=== PATIENT | male | born 1950 | race Caucasian/White ===

== ENCOUNTER 2018-05-23 18:11 | Inpatient (IN) | payer OTHER ==
[~2018-05-23] VITALS: Ht 177.8 cm; Wt 85.3 kg
[2018-05-23 18:17] VITALS: BP 126/83
[2018-05-23] MEDS ORDERED: FISH OIL 1,001000 M2 PO (18:20)
[2018-05-23] MEDS ORDERED: ASPIR 8181 MG PO (18:20)
[2018-05-23 18:35] LABS: URINE BILIRUBIN NEGATIVE (Negative); URINE BLOOD 1+ (Negative); URINE CLARITY SL CLOUDY; URINE COLOR YELLOW; URINE GLUCOSE-RANDOM NEGATIVE (Negative); URINE KETONES NEGATIVE (Negative); URINE PROTEIN TRACE (Negative); URINE SPECIFIC GRAVITY 1.025 (1.005-1.030); URINE UROBILINOGEN 0.2 E.U./dl (0.2-1.0)
[2018-05-23 18:37] LABS: URINE LEUKOCYTES-REFLEX 3+ (Negative); URINE NITRITE-REFLEX POSITIVE (Negative)
[2018-05-23 18:41] LABS: SQUAMOUS 4-10 Moderate /LPF (0-3); URINE WBC-REFLEX >25 Many /HPF (0-5)
[2018-05-23 18:42] LABS: BACTERIA-REFLEX >30 Many /HPF (None Seen); CASTS None Seen /LPF (None Seen); MUCUS >6 Heavy strn/LPF (None Seen); URINE RBC 3-10 Few /HPF (0-2)
[2018-05-23 18:43] LABS: CRYSTALS None Seen /LPF (None Seen)
[2018-05-23 19:07] LABS: HEMATOCRIT 48.6 % (42.0-52.0); HEMOGLOBIN 16.3 gm/dL (14.0-18.0); MCH 31.5 pg (26.0-34.0); MCHC 33.5 g/dL (28.0-37.0); MCV 94.3 fL (80.0-100.0); MPV 8.4 fl. (7.2-11.1); NUCLEATED RBCS 0 /100WBC; PLATELET COUNT* 258 thou/uL (150-400); RBC 5.16 mil/uL (4.50-6.00); RDW-CV 13.8 % (10.5-14.5); WBC 14.4 thou/uL (4.0-11.0)
[2018-05-23 19:13] LABS: POTASSIUM 4.4 mmol/L (3.5-5.1)
[2018-05-23 19:18] LABS: ALBUMIN 4.1 g/dL (3.4-5.0); TOTAL BILIRUBIN 2.1 mg/dL (<0.1-1.0); TOTAL PROTEIN 8.4 g/dL (6.4-8.2)
[2018-05-23 19:39] LABS: ABSOLUTE LYMPHOCYTES 1.3 thou/uL (0.8-5.3); ABSOLUTE MONOCYTES 0.7 thou/uL (0.0-1.2); ABSOLUTE NEUTROPHILS 12.4 thou/uL (1.6-8.1)
[2018-05-23 19:40] LABS: PLATELET ESTIMATE ADEQUATE
[2018-05-23 22:40] VITALS: BP 132/71
[2018-05-24] VITALS: BP 154/74
[2018-05-24 04:00] VITALS: BP 126/89
[2018-05-24 08:00] VITALS: BP 120/83
[2018-05-24 12:40] VITALS: BP 127/77
--- NOTE | 2018-05-24 13:42 | EKG ---
[place] [address] ELECTROCARDIOGRAM REPORT Name: ALYSHA MELGOZA Room: [address] ADM IN M.R.#: [id number] Admission: 05/23/18 Attend Phys: Alfredo Cuello MD Discharge: Date of : 46 Report #: [id number] THIS REPORT FOR: //name// [facility] ED Test Date: 2018-05-23 Test Time: 18:39:54 Pat Name: ALYSHA MELGOZA Department: Room: 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 : 1950 Requested By: Rekha Hernandez Order Number: [id number] MD: Julio Dior Measurements Intervals [place] Rate: 81 P: [place]: QRS: -72 QRSD: 105 T: 12 QT: 359 QTc: 417 Interpretive Statements Atrial fibrillation Incomplete right bundle branch block Borderline low voltage, extremity leads Abnormal R-wave progression, early transition No previous ECG available for comparison Electronically Signed On 05-24-2018 13:42:34 BRAND DEVELOPMENT MANAGER by Julio Dior [email or web address] <ELECTRONICALLY SIGNED> By: Julio Dior MD, [facility] 05/24/18 1342 1839 38 Julio Dior MD, FACC /EPI
--- NOTE | 2018-05-24 13:43 | EKG ---
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: : 1950 Requested By: Rekha Hernandez Order Number: [id number] MD: Julio Dior Measurements Intervals [place] Rate: 87 P: [place]: QRS: 150 QRSD: 110 T: 28 QT: 362 QTc: 436 Interpretive Statements Atrial fibrillation Low voltage, extremity leads Probable right ventricular hypertrophy No previous ECG available for comparison Electronically Signed On 05-24-2018 13:42:50 DIVING SUPERVISOR by Julio Dior [email or web address] <ELECTRONICALLY SIGNED> By: Julio Dior MD, [facility] 05/24/18 1342 2248 2248 Julio Dior MD, FACC /EPI
[2018-05-25 00:20] VITALS: BP 107/67
[2018-05-25 04:00] VITALS: BP 112/66
[2018-05-25 05:12] LABS: HEMATOCRIT 41.1 % (42.0-52.0); MCH 32.3 pg (26.0-34.0); MCHC 34.3 g/dL (28.0-37.0); MPV 8.8 fl. (7.2-11.1); RBC 4.37 mil/uL (4.50-6.00); WBC 9.9 thou/uL (4.0-11.0)
[2018-05-25 05:13] LABS: ALBUMIN 3.4 g/dL (3.4-5.0); CALCIUM 7.9 mg/dL (8.5-10.1); CREATININE 0.8 mg/dL (0.6-1.3); MAGNESIUM 1.8 mg/dL (1.8-2.4); POTASSIUM 4.1 mmol/L (3.5-5.1); TOTAL BILIRUBIN 2.1 mg/dL (<0.1-1.0); TOTAL PROTEIN 6.5 g/dL (6.4-8.2)
[2018-05-25 05:34] LABS: HEMOGLOBIN 14.1 gm/dL (14.0-18.0)
[2018-05-25 07:50] VITALS: BP 133/76
--- NOTE | 2018-05-25 12:07 | CON ---
[address] [address] CONSULTATION Name: ALYSHA MELGOZA Room: [address] IN .R.#: [id number] Admission: 05/23/18 Attend Phys: Alfredo Cuello MD Discharge: Date of : 46 Report #: [id number] THIS REPORT FOR: //name// CC: FAM physician/PCP Alfredo Cuello DATE OF SERVICE: 05/24/2018 REFERRING PHYSICIAN: Dr. Alfredo Cuello. REASON FOR CONSULTATION: UTI, flank pain and renal masses. HISTORY OF PRESENT ILLNESS: This is a 67-year-old male who denies any prior urologic intervention. He reports that he came to the hospital due to gradually worsening malaise over the past few weeks, accompanied by fairly acute onset of diffuse abdominal pain, nausea and vomiting. He also had some chest pain. He denies dysuria, hematuria or fever. He reports chronic slow stream, hesitancy, intermittency and incomplete emptying. PAST MEDICAL HISTORY: Significant for neck surgery, appendectomy, cholecystectomy. ALLERGIES: No known drug allergies. CURRENT MEDICATIONS: List is reviewed. At home, he takes only pogp-zwl-cwlcxox fish oil and aspirin. SOCIAL HISTORY: He denies tobacco or alcohol use. FAMILY HISTORY: He does not know of any family history of renal problems or prostate disease/prostate cancer. REVIEW OF SYSTEMS: As per the history of present illness. He denies shortness of breath, cough, dizziness or palpitations. Denies any other recent illness. A 10-point review of systems is otherwise negative other than as noted above. PHYSICAL EXAMINATION: VITAL SIGNS: Temperature 36.4, pulse 82, respirations 17, blood pressure 126/89. GENERAL: This is a 67-year-old male in no acute distress. He is awake, alert and oriented x 3. Answers questions appropriately. HEENT: Normocephalic, atraumatic. NECK: Supple. No JVD. Extraocular movements are intact. Oropharynx: Clear. CARDIOVASCULAR: Rhythm is regular. Chest wall is nontender. RESPIRATORY: Effort and excursion are normal. ABDOMEN: Soft, nontender, nondistended. Costovertebral [place] [address] CONSULTATION Name: ALYSHA MELGOZA Room: [address] IN [facility]#: [id number] Admission: 05/23/18 Attend Phys: Alfredo Cuello MD Discharge: Date of : 46 Report #: [id number] nontender. Bladder is nonpalpable. GENITOURINARY: Reveals normal skin of the penis and scrotum. Urethral meatus is orthotopic. There is a Whalen catheter in place with grossly clear urine. Testes are nontender with no palpable masses. Digital rectal exam reveals normal anus and sphincter tone. No rectal masses are palpable. Prostate is moderately enlarged with no fluctuance, tenderness or nodularity. EXTREMITIES: Warm. Moves all extremities well. No peripheral edema. Radial pulses are palpable. LABORATORY DATA: Includes sodium 136, potassium 4.4, chloride 99, CO2 of 29, BUN 15, creatinine 1.0, glucose 132. White count 14.4, hemoglobin 16.3, platelet count 258,000. Urinalysis reveals greater than 25 white cells, 3-10 red cells and greater than 30 bacteria. Blood and urine cultures are pending. He has been started on Rocephin empirically. Contrast CT scan of the abdomen and pelvis reveals bladder wall thickening and a possible small right renal calculus. This also reveals bilateral renal lesions, most of which appear to be cysts. One of these in the left upper pole (approximately 2 cm) has a somewhat complex appearance. Precontrast imaging was not done. Findings were discussed with the patient at length. IMPRESSION: 1. Urinary tract infection. Agree with Rocephin empirically pending culture data. 2. Acute urinary retention versus chronic urinary retention, likely secondary to benign prostatic hypertrophy, possibly affected by urinary tract infection as well. Bladder scan residual was reportedly over 400 mL. Whalen catheter has been placed. I recommend leaving that in place for at least a few days and starting Flomax. Would defer PSA at this point due to the urinary tract infection, urinary retention and instrumentation. 3. Bilateral renal lesions. Recommend precontrast imaging to evaluate further for any significant enhancement. 4. We will follow along. <ELECTRONICALLY SIGNED> By: Olayinka Guo MD 05/25/18 1207 0830 [id number] Guo MD /nt
[2018-05-25 12:35] VITALS: BP 144/72
[2018-05-25 16:32] VITALS: BP 128/69
[2018-05-26] VITALS: BP 139/98
[2018-05-26 04:00] VITALS: BP 139/81
[2018-05-26 06:00] LABS: ABSOLUTE LYMPHOCYTES 1.6 thou/uL (0.8-5.3); ABSOLUTE MONOCYTES 0.9 thou/uL (0.0-1.2); ABSOLUTE NEUTROPHILS 6.6 thou/uL (1.6-8.1); BASOPHILS 0.4 %; EOSINOPHILS 0.3 %; HEMATOCRIT 41.6 % (42.0-52.0); HEMOGLOBIN 14.3 gm/dL (14.0-18.0); LYMPHOCYTES 17.1 %; MCHC 34.4 g/dL (28.0-37.0); MCV 92.9 fL (80.0-100.0); MONOCYTES 10.1 %; MPV 8.8 fl. (7.2-11.1); NUCLEATED RBCS 0 /100WBC; PLATELET COUNT* 246 thou/uL (150-400); POLYS 72.1 %; RBC 4.47 mil/uL (4.50-6.00); RDW-CV 12.7 % (10.5-14.5); WBC 9.2 thou/uL (4.0-11.0)
[2018-05-26 06:20] LABS: ALBUMIN 3.3 g/dL (3.4-5.0); CALCIUM 8.2 mg/dL (8.5-10.1); CREATININE 0.7 mg/dL (0.6-1.3); POTASSIUM 3.7 mmol/L (3.5-5.1); TOTAL BILIRUBIN 1.9 mg/dL (<0.1-1.0)
[2018-05-26 08:30] VITALS: BP 143/90
[2018-05-26 11:44] VITALS: BP 118/79
[2018-05-26 16:37] VITALS: BP 118/75
[2018-05-27] VITALS (8 sets, daily range): BP systolic 96–148; BP diastolic 63–84
--- NOTE | 2018-05-27 15:08 | EKG ---
[place] [address] ELECTROCARDIOGRAM REPORT Name: ALYSHA MELGOZA Room: [address] ADM IN M.R.#: [id number] Admission: 05/23/18 Attend Phys: Alfredo Cuello MD Discharge: Date of : 46 Report #: [id number] THIS REPORT FOR: //name// 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 : 1950 Requested By: Greg Burt Order Number: [id number] MD: Shailesh Pollard Measurements Intervals [place] Rate: 103 P: [place]: QRS: 219 QRSD: 101 T: QT: 335 QTc: 439 Interpretive Statements Atrial fibrillation Right axis deviation Borderline low voltage, extremity leads incomplete RBBB Compared to ECG 05/23/2018 22:48:42 Electronically Signed On 05-27-2018 15:08:30 CORPORATE LEGAL INTERN by Shailesh Pollard [email or web address] <ELECTRONICALLY SIGNED> By: Shailesh Pollard MD, [facility] 05/27/18 1508 31 103 Shailesh Pollard MD, FACC /EPI
[2018-05-28] VITALS (7 sets, daily range): BP systolic 95–148; BP diastolic 51–79
[2018-05-28 05:13] LABS: ABSOLUTE EOSINOPHILS 0.1 thou/uL (0.0-0.7); ABSOLUTE LYMPHOCYTES 1.9 thou/uL (0.8-5.3); ABSOLUTE NEUTROPHILS 6.1 thou/uL (1.6-8.1); BASOPHILS 0.5 %; EOSINOPHILS 1.5 %; HEMATOCRIT 47.5 % (42.0-52.0); HEMOGLOBIN 16.2 gm/dL (14.0-18.0); LYMPHOCYTES 21.1 %; MCH 31.7 pg (26.0-34.0); MCHC 34.2 g/dL (28.0-37.0); MCV 92.8 fL (80.0-100.0); MONOCYTES 10.4 %; NUCLEATED RBCS 0 /100WBC; PLATELET COUNT* 298 thou/uL (150-400); POLYS 66.5 %; RBC 5.12 mil/uL (4.50-6.00); WBC 9.1 thou/uL (4.0-11.0)
[2018-05-28 05:31] LABS: ANION GAP 11 mmol/L (7-16); BUN 11 mg/dL (7-18); CALCIUM 8.4 mg/dL (8.5-10.1); CHLORIDE 98 mmol/L (98-107); CO2 25 mmol/L (21-32); CREATININE 0.8 mg/dL (0.6-1.3); GLUCOSE 92 mg/dL (70-99); POTASSIUM 3.7 mmol/L (3.5-5.1); SODIUM 134 mmol/L (136-145)
[2018-05-28 05:57] LABS: CHOLESTEROL 248 mg/dL (<200); HDL CHOLESTEROL 63 mg/dL (>40); LDL CHOLESTEROL 171 mg/dL (<100); TC:HDL 3.9 Ratio (Not establshd); TRIGLYCERIDE 73 mg/dL (<150); VLDL 15 mg/dL (<40)
[2018-05-28 06:06] LABS: SERUM ASSESSMENT CLEAR
--- NOTE | 2018-05-28 13:51 | 2DMMODE ---
[place] [address] 2 D/M-MODE ECHOCARDIOGRAM Name: ALYSHA MELGOZA Room: [address] ADM IN .R.#: [id number] Admission: 05/23/18 Attend Phys: Alfredo Cuello MD Discharge: Date of : 46 Date of Service: 05/28/18 1351 Report #: [id number] THIS REPORT FOR: //name// APPROVED REPORT Study performed: 05/28/2018 10:47:50 EXAM: Comprehensive 2D, Doppler, and color-flow Echocardiogram Patient Location: Bedside BSA: 2.03 HR: 68 bpm BP: 110/78 mmHg Other Information Study Quality: Good Indications Atrial Fibrillation 2D Dimensions IVSd: 10.73 (7-11mm) LVOT Diam: 20.32 (18-24mm) LVDd: 38.56 mm PWd: 10.06 (7-11mm) Ascending Ao: 33.57 (22-36mm) LVDs: 21.99 (25-40mm) Aortic Root: 31.49 mm Volumes Left Atrial Volume (Systole) LA ESV Index: 30.60 mL/m2 Aortic Valve AoV Peak Karson.: 1.15 m/s AO Peak Gr.: 5.31 mmHg LVOT Max P.12 mmHg AO Mean Gr.: 3.10 mmHg LVOT Mean P.05 mmHg LVOT Max V: 0.73 m/s AO V2 VTI: 17.37 cm LVOT Mean V: 0.47 m/s HUGO (VTI): 2.20 cm2 LVOT V1 VTI: 11.78 cm AI Morrill: 1.93 m/s2 AI PHT: 574.12 ms Mitral Valve E/A Ratio: 2.51 MV Decel. Time: 135.96 ms MV E Max Karson.: 0.58 m/[place] [address] 2 D/M-MODE ECHOCARDIOGRAM Name: ALYSHA MELGOZA MADI Room: [address] IN [facility].#: [id number] Admission: 05/23/18 Attend Phys: Alfredo Cuello MD Discharge: Date of : 46 Date of Service: 05/28/18 1351 Report #: [id number] MV PHT: 39.43 ms MVA (PHT): 5.58 cm2 TDI E/Lateral E': 4.14 E/Medial E': 4.14 Medial E' Karson.: 0.14 m/s Lateral E' Karson.: 0.14 m/s Pulmonary Valve PV Peak Karson.: 0.94 m/s PV Peak Gr.: 3.55 mmHg Tricuspid Valve RAP Estimate: 5.00 mmHg TR Peak Gr.: 20.90 mmHg RVSP: 25.90 mmHg PA Pressure: 25.90 mmHg Left Ventricle The left ventricle is normal size. Paradoxical septal motion due to bundle branch block. There is normal left ventricular wall thickness. Left ventricular systolic function is normal. A false tendon is noted (normal variant). LVEF is 60-65%. This study is not technically sufficient to allow evaluation of the LV diastolic function due to atrial fibrillation. Right Ventricle Right ventricle is mildly dilated. The right ventricular systolic function is normal. Atria Left atrium is mildly dilated. Right atrium is mildly dilated. Aortic Valve Aortic valve is mildly calcified. Trace aortic regurgitation. There is no aortic valvular stenosis. Mitral Valve The mitral valve is normal in structure. There is no mitral valve regurgitation noted. No evidence of mitral valve stenosis. Tricuspid Valve The tricuspid valve is normal in structure. Mild tricuspid regurgitation. No pulmonary hypertension. Pulmonic Valve The pulmonary valve is normal in structure[place] [address] 2 D/M-MODE ECHOCARDIOGRAM Name: ALYSHA MELGOZA Room: [address] IN [facility]#: [id number] Admission: 05/23/18 Attend Phys: Alfredo Cuello MD Discharge: Date of : 46 Date of Service: 05/28/18 1351 Report #: [id number] valvular regurgitation. Great Vessels The aortic root is normal in size. IVC is normal in size and collapses >50% with inspiration. Pericardium There is no pericardial effusion. <Conclusion> The left ventricle is normal size. There is normal left ventricular wall thickness. Left ventricular systolic function is normal. LVEF is 60-65%. This study is not technically sufficient to allow evaluation of the LV diastolic function due to atrial fibrillation. Left atrium is mildly dilated. Right atrium is mildly dilated. Right ventricle is mildly dilated. Aortic valve is mildly calcified. Trace aortic regurgitation. Mild tricuspid regurgitation. No pulmonary hypertension. IVC is normal in size and collapses >50% with inspiration. <ELECTRONICALLY SIGNED> By: Julio Dior MD, FACC 05/28/18 1351 1351 1351 Julio Dior MD, FACC /INF
[2018-05-29] VITALS: BP 114/84
[2018-05-29 04:00] VITALS: BP 98/75
[2018-05-29 08:00] VITALS: BP 118/80
[2018-05-29] MEDS ORDERED: LOPRESSOR25 (14:10)
[2018-05-29] MEDS ORDERED: CEFUROXIME500 MG PO (14:10)
[2018-05-29] MEDS ORDERED: FLOMAX0.4 MG PO (14:12)
[2018-05-29 14:13] VITALS: BP 148/79
[2018-05-29 14:16] VITALS: BP 148/79
== END 2018-05-29 15:33 | disposition home or self-care (01) | DRG 689 ==
LOC: M.ERS 18:11 → M.TBA-ER 20:53 → M.3W 20:53
PROVIDERS: Internal Medicine; Physician Assistant; ADMIT Family Medicine
DX: N30.00 Acute cystitis without hematuria (principal); R65.11 Systemic inflammatory response syndrome (SIRS) of non-infectious origin with acute organ dysfunction; N17.9 Acute kidney failure, unspecified; E87.1 Hypo-osmolality and hyponatremia; N40.1 Benign prostatic hyperplasia with lower urinary tract symptoms; R33.8 Other retention of urine; R10.13 Epigastric pain; I48.91 Unspecified atrial fibrillation; Z79.82 Long term (current) use of aspirin; Z90.49 Acquired absence of other specified parts of digestive tract; Z79.899 Other long term (current) drug therapy

== ENCOUNTER 2018-12-04 14:37 | Emergency (ER) | payer OTHER ==
[~2018-12-04] VITALS: Ht 177.8 cm; Wt 8.6 kg
[~2018-12-04 14:37] MED LIST: ASPIR 8181 MG PO; CEFUROXIME500 MG PO; FISH OIL 1,001000 M2 PO; FLOMAX0.4 MG PO; LOPRESSOR25 PO; PHENERGAN 25 MG25 M1 PO; REGLAN 10 MG TA10 MG PO
[2018-12-04] MEDS ORDERED: FISH OIL 1,001000 M2 PO (14:51)
[2018-12-04 15:30] LABS: ABSOLUTE BASOPHILS 0.1 thou/uL (0.0-0.2); ABSOLUTE EOSINOPHILS 0.2 thou/uL (0.0-0.7); ABSOLUTE LYMPHOCYTES 1.9 thou/uL (0.8-5.3); ABSOLUTE MONOCYTES 0.7 thou/uL (0.0-1.2); ABSOLUTE NEUTROPHILS 5.2 thou/uL (1.6-8.1); BASOPHILS 0.7 %; EOSINOPHILS 2.2 %; HEMATOCRIT 45.4 % (42.0-52.0); LYMPHOCYTES 23.7 %; MCH 30.7 pg (26.0-34.0); MCHC 33.1 g/dL (28.0-37.0); MCV 92.9 fL (80.0-100.0); MONOCYTES 8.8 %; MPV 7.7 fl. (7.2-11.1); NUCLEATED RBCS 0 /100WBC; PLATELET COUNT* 257 thou/uL (150-400); POLYS 64.6 %; RBC 4.89 mil/uL (4.50-6.00); RDW-CV 13.3 % (10.5-14.5)
[2018-12-04 15:36] LABS: ANION GAP 10 mmol/L (7-16); BUN 16 mg/dL (7-18); CALCIUM 8.7 mg/dL (8.5-10.1); CHLORIDE 104 mmol/L (98-107); CO2 28 mmol/L (21-32); GLUCOSE 100 mg/dL (70-99); POTASSIUM 4.6 mmol/L (3.5-5.1); SODIUM 142 mmol/L (136-145)
[2018-12-04 15:51] LABS: ALBUMIN 3.7 g/dL (3.4-5.0); ALKALINE PHOSPHATASE 80 U/L (46-116); NT-PRO BRAIN NAT PEPTIDE 977 pg/mL (<300); SGOT 21 U/L (15-37); SGPT 29 U/L (30-65); TOTAL BILIRUBIN 1.2 mg/dL (<0.1-1.0); TOTAL PROTEIN 7.5 g/dL (6.4-8.2); TROPONIN-I LEVEL <0.06 ng/mL (<0.06)
[2018-12-04] MEDS ORDERED: ANTIVERT25 MG PO (16:47)
[2018-12-04 17:40] VITALS: BP 115/67
--- NOTE | 2018-12-06 10:47 | EKG ---
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: : 1950 Requested By: Christian Angulo Order Number: [id number] MD: Shailesh Pollard Measurements Intervals [place] Rate: 64 P: [place]: QRS: 125 QRSD: 112 T: 37 QT: 393 QTc: 406 Interpretive Statements Atrial fibrillation IRBBB Low voltage, extremity leads Compared to ECG 05/27/2018 10:32:03 rate slowed Electronically Signed On 12-06-2018 10:47:18 CDT by Shailesh Pollard [email or web address] <ELECTRONICALLY SIGNED> By: Shailesh Pollard MD, [facility] 12/06/18 1047 1456 1456 Shailesh Pollard MD, FACC /EPI
== END 2018-12-04 17:40 | disposition home or self-care (01) ==
LOC: M.ERS 14:37
PROVIDERS: Emergency Medicine Emergency Medical Services
DX: I63.9 Cerebral infarction, unspecified (principal); I48.91 Unspecified atrial fibrillation; Z90.49 Acquired absence of other specified parts of digestive tract